=== PATIENT | female | born 1995 | race Hispanic/Latino ===

== ENCOUNTER 2025-05-02 20:38 | Emergency (ER) | payer BC ==
[~2025-05-02] VITALS: Ht 182.9 cm; Wt 158.0 kg
[2025-05-02 21:24] LABS: BASOPHILS # (AUTO) 0.04 K/uL (0.00-0.20); BASOPHILS % (AUTO) 0.4 % (0.0-5.0); EOSINOPHILS # (AUTO) 0.16 K/uL (0.00-0.70); EOSINOPHILS % (AUTO) 1.6 % (0.0-8.0); HEMATOCRIT 27.1 % (36-48); IMMATURE GRANULOCYTE ABSOLUTE 0.04 K/uL (0-1); LYMPHOCYTES # (AUTO) 2.5 K/uL (1.0-4.8); LYMPHOCYTES % (AUTO) 24.4 % (21.0-51.0); MEAN CORPUSCULAR HEMOGLOBIN 20.5 pg (27.0-33.0); MEAN CORPUSCULAR HGB CONC 28.4 g/dL (32.0-36.0); MEAN CORPUSCULAR VOLUME 72.1 fL (79-99); MONOCYTES # (AUTO) 0.5 K/uL (0.1-1.0); MONOCYTES % (AUTO) 4.9 % (3.0-13.0); NEUTROPHILS % (AUTO) 68.3 % (40.0-77.0); PLATELET COUNT (AUTO) 382 K/uL (130-400); RED BLOOD CELL COUNT(AUTO) 3.76 MIL/uL (4.00-5.50); RED CELL DISTRIBUTION WIDTH 16.3 % (11.0-15.5); WHITE BLOOD COUNT (AUTO) 10.2 K/uL (4.8-10.8)
[2025-05-02 21:35] LABS: CREATININE 0.7 mg/dL (0.5-1.0)
--- NOTE | 2025-05-02 21:49 | HMCIMG ---
US TRANSVAGINAL NON-OB HISTORY: bleeding COMPARISON: None FINDINGS: Uterus measures 9 cm in length and there is a 1.5 cm endometrial thickness with no identified intrauterine gestation. Left ovary is not identified. The right ovary is unremarkable in size and echogenicity and vascularity. There is no adnexal mass or free fluid. Note is made of multiple cervical nabothian cysts largest measuring 1.5 cm. IMPRESSION: 1.5 cm endometrial thickness. Nonvisualization left ovary
--- NOTE | 2025-05-02 21:49 | ERN ---
General Chief Complaint: Vaginal Problems/Bleeding Stated Complaint: VAGINAL BLEEDING 2 MTHS/ PAIN LT OVARY Time Seen by MD: 20:43 Source: patient History of Present Illness Initial Comments Patient is a 29-year-old obese female who presents with two months of bleeding and pain from her left ovary. 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 She reports that she has been diagnosed with polycystic ovarian disease. She was diagnosed with a dermoid cyst on her left ovary which was surgically removed. Since that time she always has heavy periods in the summer months. In fact she was prescribed TXA in order to quell the bleeding. And she has tried hormonal manipulations as well with IUDs and Depo-Provera and none of those interventions has changed her heavy periods in the summer. She comes in here concerns about anemia. Past Medical History Past Medical History: Other Medical History Other: PCOS Past Surgical History: Other Surgical History Other: LEFT OVARY dermoid cyst removal Constitutional: (-) chills, (-) diaphoresis, (-) fever, (-) malaise, (-) weakness, (-) other documentation EENTM: (-) eye pain, (-) blurred vision, (-) tearing, (-) double vision, (-) ear pain, (-) ear discharge, (-) nose pain, (-) nose congestion, (-) throat pain, (-) Throat swelling, (-) mouth pain, (-) tooth pain, (-) mouth swelling, (-) other documentation Cardiovascular: (-) chest pain, (-) edema, (-) palpitations, (-) syncope, (-) dyspnea on exertion, (-) other documentation Gastrointestinal/Abdominal: (-) nausea, (-) vomiting, (-) diarrhea, (-) abdominal pain, (-) abdominal distention, (-) constipation, (-) rectal bleeding, (-) dark stool/melena, (-) other documentation Genitourinary: (+) vaginal bleeding Musculoskeletal: (-) Neck pain, (-) back pain, (-) Flank Pain, (-) joint pain, (-) joint swelling, (-) muscle pain, (-) muscle stiffness, (-) gout, (-) other documentation Skin: (-) laceration, (-) contusion, (-) abrasion, (-) abscess, (-) rash, (-) change in color, (-) change in hair, (-) change in nails, (-) diaphoresis, (-) dryness, (-) other documentation Neuro: (-) altered mental status, (-) headache, (-) syncope, (-) paralysis, (-) numbness, (-) seizure, (-) pre-existing deficit, (-) tremors, (-) weakness, (-) dizziness, (-) slurred speech, (-) vertigo, (-) other documentation Physical Exam General Appearance: (+) no apparent distress General Appearance comment Morbidly obese Orientation: (+) alert, (+) oriented x 3 Head/Face Trauma: No Eye: bilateral eye normal inspection, bilateral eye PERRL, bilateral eye EOMI Ear, Nose, Throat: (+) hearing grossly normal, (+) normal ENT inspection Neck: (+) normal inspection, (+) supple, (+) full range of motion Respiratory: (+) lungs clear Heart: (+) regular Vascular: (+) no edema Gastrointestinal: (+) soft, (+) non-tender, (+) bowel sound present Genital: (+) vaginal Bleeding Results Laboratory and Microbiology Lab and Micro Result Laboratory Tests Test 05/02/25 21:08 White Blood Count 10.2 K/uL (4.8-10.8) Red Blood Count 3.76 MIL/uL (4.00-5.50) L Hemoglobin 7.7 g/dL (12.0-16.0) L Hematocrit 27.1 % (36-48) L Mean Corpuscular Volume 72.1 fL (79-99) L Mean Corpuscular Hemoglobin 20.5 pg (27.0-33.0) L Mean Corpuscular Hemoglobin Concent 28.4 g/dL (32.0-36.0) L Red Cell Distribution Width 16.3 % (11.0-15.5) H Platelet Count 382 K/uL (130-400) Mean Platelet Volume 11.3 fL (7.5-10.5) H Immature Granulocyte % (Auto) 0.4 % (0-1) Neutrophils (%) (Auto) 68.3 % (40.0-77.0) Lymphocytes (%) (Auto) 24.4 % (21.0-51.0) Monocytes (%) (Auto) 4.9 % (3.0-13.0) Eosinophils (%) (Auto) 1.6 % (0.0-8.0) Basophils (%) (Auto) 0.4 % (0.0-5.0) Neutrophils # (Auto) 7.0 K/uL (1.8-7.7) Lymphocytes # (Auto) 2.5 K/uL (1.0-4.8) Monocytes # (Auto) 0.5 K/uL (0.1-1.0) Eosinophils # (Auto) 0.16 K/uL (0.00-0.70) Basophils # (Auto) 0.04 K/uL (0.00-0.20) Absolute Immature Granulocyte (auto 0.04 K/uL (0-1) Nucleated Red Blood Cells 0.0 % (0.0-0.19) Red Blood Cell Morphology See comments Sodium Level 138 mmol/L (136-145) Potassium Level 4.0 mmol/L (3.5-5.1) Chloride Level 104 mmol/L (101-111) Carbon Dioxide Level 28 mmol/L (21-32) Blood Urea Nitrogen 9 mg/dL (7-18) Creatinine 0.7 mg/dL (0.5-1.0) Glomerular Filtration Rate Calc 121 mL/min (>90) Random Glucose 88 mg/dL (70-105) Total Calcium 8.9 mg/dL (8.5-10.1) MDM 29-year-old female with heavy menses in the summer months. She states it has happened after removal of a dermoid cyst from her left ovary. She comes in today because she is concerned about anemia. I have ordered a UA a urine test CBC and a transvaginal ultrasound. And CBC shows a hemoglobin level of 7.7. I discussed the result with the patient she does not need a transfusion right now. Transvaginal ultrasound shows a thickened uterine lining. No fetus. We are still waiting for a urine sample. Patient states that she went to the bathroom right before coming into the emergency room. I asked her if she would like to just skip IV fluids and urine analysis. We know she is not we know she does not need a blood transfusion. And she agreed to that plan. I will discharge her from the emergency room. ED Course Orders Procedure Category Date Status Time Basic Metabolic Panel LAB 05/02/25 Complete 20:49 Cbc With Differential LAB 05/02/25 Complete 20:49 ,Urine Test LAB 05/02/25 Logged 20:49 Urinalysis Profile LAB 05/02/25 Logged 20:49 Us Transvaginal Non-Ob US 05/02/25 Resulted 20:49 Vital Signs Date Time Temp Pulse Resp B/P (MAP) Pulse Ox O2 Delivery O2 Flow Rate FiO2 05/02/25 21:11 98.2 81 18 169/89 100 Room Air* 0 21 05/02/25 20:39 97.9 85 20 166/92 100 Room Air DX & DISP Disposition: Discharge Departure Impression: Primary Impression: Anemia Additional Impression: Heavy menses Condition: Stable Additional Instructions: Please return to the emergency room if you feel the need for a blood transfusion. You have had them in the past so I trust you to know the symptoms. Please establish care with a local painter supervisor so we can figure out what is causing your hand heavy menses in the summer months. Referrals: SELF,REFERRAL (PCP) PAUL SUAREZ MD May 02, 2025 21:49
[2025-05-02 22:28] VITALS: BP 154/80; PULSE 79; RESP 18; TEMP 98; O2SAT 99
[2025-05-02] MEDS ORDERED: TRAN650T5 PO (22:32)
== END 2025-05-02 22:37 | disposition home or self-care (01) ==
LOC: EDH 20:38
DX: D64.9 Anemia, unspecified (principal); N92.0 Excessive and frequent menstruation with regular cycle
CPT/HCPCS: 36415; 76830; 80048; 85025; 99284